=== PATIENT | male | born 1945 | race Caucasian/White ===

== ENCOUNTER → 2016-07-18 | Outpatient (CLI) | payer MEDICARE | LOC: CT 11:25 | DX: J44.9 Chronic obstructive pulmonary disease, unspecified (principal); I51.7 Cardiomegaly; J43.9 Emphysema, unspecified; R91.1 Solitary pulmonary nodule | CPT/HCPCS: 71260; J7050; Q9962 ==

== ENCOUNTER → 2016-08-29 | Outpatient (CLI) | payer MEDICARE | LOC: KOH-I 08:25 | DX: I73.9 Peripheral vascular disease, unspecified (principal) | CPT/HCPCS: 93925 ==

== ENCOUNTER → 2016-09-14 | Outpatient (CLI) | payer MEDICARE | LOC: CT 09-11 08:30 | DX: I73.9 Peripheral vascular disease, unspecified (principal); K55.069 Acute infarction of intestine, part and extent unspecified; I74.3 Embolism and thrombosis of arteries of the lower extremities; I77.89 Other specified disorders of arteries and arterioles | CPT/HCPCS: 75635; J7050; Q9963 ==

== ENCOUNTER → 2021-12-06 | Outpatient (CLI) | payer MEDICARE | LOC: KOH-I 10:59 | DX: F17.210 Nicotine dependence, cigarettes, uncomplicated (principal); R91.8 Other nonspecific abnormal finding of lung field | CPT/HCPCS: 71271 ==